=== PATIENT | male | born 1950 | race Caucasian/White ===

== ENCOUNTER 2017-06-27 07:49 | Day surgery (SDC) | payer MEDICARE, OTHER ==
[2017-06-27] MEDS ORDERED: PROPOFOL 500 MG/50 ML EMU IV ONE (08:27)
[2017-06-27 09:26] VITALS: RESP 18
[2017-06-27 09:43] VITALS: BP 116/66; PULSE 53; TEMP 97.2; O2SAT 96
== END 2017-06-27 10:09 | disposition home or self-care (01) | DRG 951 ==
LOC: SURG 07:49
PROVIDERS: ATTEND Surgery
DX: Z12.11 Encounter for screening for malignant neoplasm of colon (principal); C7A.026 Malignant carcinoid tumor of the rectum; K57.30 Diverticulosis of large intestine without perforation or abscess without bleeding; D12.0 Benign neoplasm of cecum
CPT/HCPCS: 99001; J2704

== ENCOUNTER 2018-09-20 09:22 | Day surgery (SDC) | payer MEDICARE, OTHER ==
[~2018-09-20 09:22] MED LIST: PROPOFOL 500 MG/50 ML EMU IV ONE
[2018-09-20 10:57] VITALS: O2SAT 97
[2018-09-20 13:08] VITALS: BP 131/80; PULSE 66; RESP 18; TEMP 98.1
== END 2018-09-20 11:43 | disposition home or self-care (01) | DRG 951 ==
LOC: SURG 09:22
PROVIDERS: ATTEND Surgery
DX: Z12.11 Encounter for screening for malignant neoplasm of colon (principal); K57.32 Diverticulitis of large intestine without perforation or abscess without bleeding; Z86.010 Personal history of colon polyps
CPT/HCPCS: J2704